=== PATIENT | female | born 1975 | race Hispanic/Latino ===

== ENCOUNTER 2018-08-13 13:57 | Emergency (ER) | payer OTHER, SELFPAY ==
[2018-08-13] MEDS ORDERED: Ibuprofen 200 MG TAB ONE (15:12)
[2018-08-13] MEDS ORDERED: Ibuprofen 800 MG TAB ONE (15:13)
--- NOTE | 2018-08-13 15:32 | RAD ---
FRONTAL CHEST WITH 2 VIEWS LEFT RIBS: DATE: 08/13/2018. PROVIDED CLINICAL HISTORY: Left rib pain status post injury. FINDINGS: Cardiac and mediastinal silhouette is within normal limits. Lungs appear clear. No pleural fluid or pneumothorax apparent. No evidence for a displaced left-sided rib fracture. IMPRESSION: No evidence for an acute cardiopulmonary process. POS: [facility]
== END 2018-08-13 15:43 | disposition home or self-care (01) ==
LOC: ERS 13:57
DX: S16.1XXA Strain of muscle, fascia and tendon at neck level, initial encounter (principal); R07.89 Other chest pain; F41.9 Anxiety disorder, unspecified; F32.9 Major depressive disorder, single episode, unspecified; F17.210 Nicotine dependence, cigarettes, uncomplicated; V43.52XA Car driver injured in collision with other type car in traffic accident, initial encounter

== ENCOUNTER 2018-11-02 19:07 | Emergency (ER) | payer SELFPAY ==
[2018-11-02 19:42] LABS: Hemoglobin 13.3 g/dL (12.0-16.0); Mean Corpuscular HGB CONC 33.2 g/dL (32.0-36.0); Mean Corpuscular Hemoglobin 30.7 pg (27.0-31.0); Mean Corpuscular Volume 92.3 fL (78.0-98.0); Mean Platelet Volume 7.1 fL (7.4-10.4); Platelet Count 268 thou/uL (130-400); RBC Distribution Width 12.7 % (11.5-14.5); Red Blood Cell (RBC) Count 4.35 mill/uL (4.20-5.40); White Blood Cell (WBC) Count 7.6 thou/uL (4.8-10.8)
--- NOTE | 2018-11-02 19:52 | RAD ---
PORTABLE CHEST: 11/02/18 HISTORY: Tachycardia. Lung blackman are clear. Vascular markings normal. Heart size is normal. IMPRESSION: No acute abnormality. POS: [facility]
[2018-11-02 19:53] LABS: ALT (SGPT) 17 U/L (8-55); AST (SGOT) 19 U/L (5-34); Albumin 4.5 g/dL (3.5-5.0); Alkaline Phosphatase 55 U/L (40-150); Anion Gap 14 mmol/L (10-20); BUN (Urea Nitrogen) 19 mg/dL (7.0-18.7); Bilirubin, Total 0.1 mg/dL (0.2-1.2); Calc. Creatinine Clearance 0 mL/min (70-130); Calcium 9.5 mg/dL (7.8-10.44); Carbon Dioxide 23 mmol/L (22-29); Chloride 107 mmol/L (98-107); Estimated GFR-MDRD 71; Globulin 2.8 g/dL (2.4-3.5); Glucose 89 mg/dL (70-105); Potassium 3.4 mmol/L (3.5-5.1); Protein, Total 7.3 g/dL (6.0-8.3); Sodium 141 mmol/L (136-145)
[2018-11-02 19:56] LABS: Band 2 % (5-11); Eosinophils 1 % (0-10); Lymphocytes 49 % (21-51); MDiff Complete? YES; Monocytes 10 % (0-10); Neutrophil 37 % (42-75); Platelet Morphology Comment Appears Adequate; RBC Morphology Normal
== END 2018-11-02 20:57 | disposition home or self-care (01) ==
LOC: SCSER 19:07
DX: R00.2 Palpitations (principal); R20.2 Paresthesia of skin; F17.210 Nicotine dependence, cigarettes, uncomplicated; F41.9 Anxiety disorder, unspecified; F32.9 Major depressive disorder, single episode, unspecified
CPT/HCPCS: 71045; 80053; 84443; 84484; 85025; 93005; 96360

== ENCOUNTER 2020-02-26 08:29 | Emergency (ER) | payer SELFPAY ==
[2020-02-26] MEDS ORDERED: Naloxone HCl 2 mg/2 ml Syringe ONE (08:51)
[2020-02-26] MEDS ORDERED: Adacel (T-DAP) 0.5 ML SYRINGE ONE (09:26)
--- NOTE | 2020-03-02 17:00 | EKG ---
Test Reason : Blood Pressure : / mmHG Vent. Rate : 066 BPM Atrial Rate : 066 BPM P-R Int : 122 ms QRS Dur : 102 ms QT Int : 448 ms P-R-T Axes : 000 144 143 degrees QTc Int : 469 ms Normal sinus rhythm Left posterior fascicular block Prolonged QT Abnormal ECG Confirmed by LEENA RIVERS ([id number]), editor managing director IRISH TURNER ([id number] on 03/02/2020 5:00:18 PM Referred By: Confirmed By:LEENA Rangel
== END 2020-02-26 12:25 | disposition home or self-care (01) ==
LOC: ERS 08:29
DX: F10.129 Alcohol abuse with intoxication, unspecified (principal); F41.9 Anxiety disorder, unspecified; F32.9 Major depressive disorder, single episode, unspecified; F17.210 Nicotine dependence, cigarettes, uncomplicated; Y90.9 Presence of alcohol in blood, level not specified
CPT/HCPCS: 90471; 90715; 93005; 94760; 96374; J2310